=== PATIENT | female | born 1990 | race Caucasian/White ===

== ENCOUNTER 2017-06-29 20:06 | Emergency (ER) | payer BC ==
[~2017-06-29] VITALS: Ht 167.6 cm; Wt 73.0 kg
[2017-06-29] MEDS ORDERED: ALPRAZOLAM 0.5 MG TABLET PO ONE (20:45)
[2017-06-29 20:53] VITALS: BP 143/89
== END 2017-06-29 23:08 | disposition home or self-care (01) ==
LOC: ER 22:35
DX: F41.0 Panic disorder [episodic paroxysmal anxiety] (principal); R03.0 Elevated blood-pressure reading, without diagnosis of hypertension; F17.210 Nicotine dependence, cigarettes, uncomplicated; F12.90 Cannabis use, unspecified, uncomplicated; Z86.59 Personal history of other mental and behavioral disorders
CPT/HCPCS: 99284